=== PATIENT | female | born 1935 | race Caucasian/White ===

== ENCOUNTER → 2016-05-11 | Outpatient (CLI) | payer MEDICARE | LOC: LAB 14:45 | PROVIDERS: ATTEND Family Medicine | DX: Z51.81 Encounter for therapeutic drug level monitoring (principal); Z79.01 Long term (current) use of anticoagulants | CPT/HCPCS: 36415; 85610 ==

== ENCOUNTER → 2016-06-13 | Outpatient (CLI) | payer MEDICARE | LOC: LAB 09:05 | PROVIDERS: ATTEND Family Medicine | DX: Z51.81 Encounter for therapeutic drug level monitoring (principal); Z79.01 Long term (current) use of anticoagulants | CPT/HCPCS: 36415; 85610 ==

== ENCOUNTER → 2016-07-04 | Outpatient (CLI) | payer MEDICARE | LOC: LAB 09:07 | PROVIDERS: ATTEND Family Medicine | DX: Z51.81 Encounter for therapeutic drug level monitoring (principal); Z79.01 Long term (current) use of anticoagulants | CPT/HCPCS: 36415; 85610 ==

== ENCOUNTER → 2016-07-08 | Outpatient (CLI) | payer MEDICARE | LOC: EMS 15:42 | DX: Z53.20 Procedure and treatment not carried out because of patient's decision for unspecified reasons (principal) ==

== ENCOUNTER → 2016-08-10 | Outpatient (CLI) | payer MEDICARE ==
[~2016-08-10] MED LIST: BACL10TA PO; CHOL200044 PO; DOCU-243 PO; Diclofenac Sod TOP; GALA8CAP PO; Hydrocodone Bit/Acetaminophen PO; LANS30CA PO; LEVO100T PO; Levothyroxine Sodium PO; MIRALAX 17 GM P17 GM PO; MULT-954 PO; NORT50CA PO; OMEP20CA6 PO; POTA99TA3 PO; PRV20T PO; SENN8.6T62 PO; TRIA80CR3; WARF6TAB PO; WARF7.5T PO; WRF5T PO
== END ==
LOC: LAB 14:06
PROVIDERS: ATTEND Family Medicine
DX: Z51.81 Encounter for therapeutic drug level monitoring (principal); Z79.01 Long term (current) use of anticoagulants
CPT/HCPCS: 36415; 85610

== ENCOUNTER → 2016-08-18 | Outpatient (CLI) | payer MEDICARE ==
[2016-08-18 09:27] LABS: BASOPHILS % (AUTO) 1 % (0-2); EOSINOPHILS # (AUTO) 0.2 10^3uL; EOSINOPHILS % (AUTO) 3 % (0-4); MEAN CORPUSCULAR HEMOGLOBIN 31.1 PG (26.0-34.0); MEAN CORPUSCULAR HGB CONC 33.4 g/dL (31.0-37.0); MEAN CORPUSCULAR VOLUME 93 FL (80-100); MEAN PLATELET VOLUME 9.5 FL (6.0-9.5); MONOCYTES # (AUTO) 0.6 X10^3; MONOCYTES % (AUTO) 11 % (3-11); NEUTROPHILS # (AUTO) 2.5 X10^3; NEUTROPHILS % (AUTO) 47 % (51-67); PLATELET COUNT 274 10^3uL (150-450); WHITE BLOOD COUNT 5.26 10^3uL (4.0-11.0)
[2016-08-18 09:30] LABS: BILIRUBIN,URINE Negative (Negative); CLARITY,URINE Cloudy; COLOR,URINE Yellow; GLUCOSE, URINE (UA) Negative (Negative); LEUKOCYTE ESTERASE ,URINE 3+ (Negative); UROBILINOGEN,URINE 0.2 mg/dL (0.2-1.0)
[2016-08-18 09:36] LABS: URINE CENTRIFUGED VOLUME 12 mL
[2016-08-18 09:52] LABS: ALBUMIN 4.2 g/dL (3.4-5.0); ANION GAP 14.1 MEQ/L (3-15); CALCULATED IONIZED CALCIUM 4.3 mg/dL (3.8-4.6); MAGNESIUM* 2.2 mg/dL (1.6-2.3); TOTAL PROTEIN 7.3 g/dL (6.4-8.5)
--- NOTE | 2016-08-18 10:58 | Diagnostic Imaging Report ---
INDICATION: Yearly physical. COMPARISON: 09/10/2015. FINDINGS: The lungs remain well aerated. There are no infiltrates present. No masses have developed. The heart is not enlarged. No pulmonary edema. No pneumothorax or pleural effusion. IMPRESSION: No acute changes when compared with previous exam. Dictated by: Dictated on workstation # [id number]
== END ==
LOC: LAB 09:05
PROVIDERS: ATTEND Family Medicine
DX: R06.00 Dyspnea, unspecified (principal); I49.8 Other specified cardiac arrhythmias; R79.89 Other specified abnormal findings of blood chemistry; E78.2 Mixed hyperlipidemia; D50.8 Other iron deficiency anemias; N39.0 Urinary tract infection, site not specified; R82.99 Other abnormal findings in urine; G72.0 Drug-induced myopathy; K71.2 Toxic liver disease with acute hepatitis; E83.42 Hypomagnesemia; E03.4 Atrophy of thyroid (acquired); M81.8 Other osteoporosis without current pathological fracture
CPT/HCPCS: 36415; 71020; 80053; 80061; 81003; 81015; 82306; 82550; 82977; 83735; 84436; 84443; 85025; 87088; 93005

== ENCOUNTER → 2016-09-09 | Outpatient (CLI) | payer MEDICARE | LOC: NM 09:31 | PROVIDERS: ATTEND Family Medicine | DX: Z51.81 Encounter for therapeutic drug level monitoring (principal); Z79.01 Long term (current) use of anticoagulants | CPT/HCPCS: 36415; 85610 ==